=== PATIENT | female | born 1980 | race Caucasian/White ===

== ENCOUNTER 2017-02-27 18:58 | Observation (INO) | payer MEDICARE, MEDICAID ==
[~2017-02-27 18:58] MED LIST: ACETAMINOP650 MG/SUP RC; ACIDOPHILUS LA1 EAC1 PO; ACIDOPHILUS1 CAP; ACIDOPHILUS1 CAP PO; ACIDOPHILUS1 EACH PO; ACTOS15 MG PO; ACTOS30 MG; ADVAIR 1001 DISK W/D IH; ADVAIR 5001 DISK W/D; ADVAIR 5001 DISK W/D IH; ADVAIR 50028 BLISTE1 PO; ALBUTEROL17 GM INH; AMOXICILLIN500 M PO; AMOXICILLIN500 MG; AMOXICILLIN875 MG; ATIVAN0.5 MG PO; AUGMENTIN 875-11 TAB PO; AUGMENTIN875 MG PO; AVELOX400 MG PO; BACTRIM; BACTRIM DS TAB1 EAC2 PO; BIRTH CONTROL PILL; CALCIUM + D3 E1 EAC2 PO; CALCIUM PO; CALCIUM WITH VI1 TAB PO; CALCIUM500 M4 PO; CALCIUM600 MG PO; CEFDINIR300 MG PO; CEFTIN500 MG PO; CELEXA20 MG PO; CIPRO; COLACE100 MG PO; CULTURELLE1 CA1 NG; DELTASONE10 MG; DELTASONE10 MG PO; DIABETA5 MG; DIFLUCAN; DIFLUCAN100 MG PO; DIFLUCAN150 MG PO; DIFLUCAN50 MG PO; DIOVAN80 M; DIOVAN80 M PO; DORYX100 MG PO; DOXYCYCLINE HY100 M2 PO; DUONEB 2.5-0.5 M3 ML; EPIPEN 2-P0.3 MG/0.3 IJ; EPIPEN0.3 MG/0.1 IM; ERYTHROMYCIN E400 MG PO; FLONASE ALLERG9.9 ML; FLONASE16 G1; FLONASE16 GM; FLONASE16 GM NS; FLOVENT DISKU250 MC1 IH; FLOVENT DISKU250 MCG IH; FLOVENT HFA12 G; FLOVENT HFA12 G IH; FLOVENT13; FOLIC ACID0.4 M1 PO; FOLIC ACID0.4 MG PO; GLIMEPIRIDE4 MG; GLUCAGEN1 MG/1 ML IM; GLUCAGEN1 MG/KIT IJ; GLUCAGON IN1 MG/1 ML IM; GLUCAGON1 MG/KIT IM; GLUCOPHAGE1000 MG; GLUCOPHAGE1000 MG PO; GLUCOPHAGE500 MG; GLUCOPHAGE500 MG PO; HUMALOG100 U/ML; HUMALOG100 U/ML SQ; HUMULIN; HUMULIN N100 U/ML; HUMULIN R100 U/ML SQ; IBUPROFEN600 MG PO; IBUPROFEN800 MG PO; INSULIN PUMP; INSULIN PUMP1 EACH MC; INSULIN SC; K-DUR20 ME1 PO; K-DUR20 MEQ PO; KEFLEX500 M4 PO; KEFLEX500 MG PO; LACTINEX PACKET1 PKT PO; LANTUS100 U/ML; LANTUS100 U/ML SC; LASIX20 MG PO; LASIX40 MG PO; LEVAQUIN500 MG; LEVEMIR100 U/M SC; LEVOTHROID125 MCG PO; LEVOTHROID150 MC1 PO; LEVOTHROID150 MCG PO; LEVOXYL150 MC1 PO; LEVOXYL150 MCG PO; LEVOXYL200 MCG PO; LIPITOR10 M1 PO; LIPITOR10 MG; LIPITOR10 MG PO; LISINOPRIL10 M1 PO; LISINOPRIL2.5 MG PO; LOPERAMIDE2 M2 PO; LORAZEPAM0.5 MG PO; MACROBID 100 M100 MG PO; MAG-AL PLUS SUS30 ML PO; MAGIC MOUTH WASH PO; METROGEL-VAGINA70 GM VG; METRONIDAZOLE500 MG PO; MILK OF MA400 MG/5 M PO; MIRALAX12 EA PO; MIRALAX17 G1 PO; MONISTAT 7100 MG/SUP; MONTELUKAST SOD10 M1 PO; MONTELUKAST SOD10 M2 PO; MUCINEX DM1 TAB.SR .; MUCINEX600 MG PO; MULTIVITAMIN1 TAB PO; MULTIVITAMINS1 EAC7 PO; NEURONTIN300 M1 PO; NOVOLOG100 U/M; NOVOLOG100 U/M SQ; OMEPRAZOLE20 M2 PO; OMEPRAZOLE20 M3 PO; ORAL BIRTH CONTROL PO; OXYCODONE/APAP PO; PEN-VEE K500 MG PO; PERCOCET 5/3251 TAB PO; PHENERGAN12.5 MG PO; PHENERGAN25 M3 RC; PREDNISONE; PREDNISONE1 MG PO; PREDNISONE10 MG; PREDNISONE10 MG PO; PREDNISONE20 MG; PREDNISONE20 MG PO; PRILOSEC OTC20 M1 PO; PRILOSEC OTC20 MG PO; PRILOSEC20 MG PO; PRINIVIL2.5 MG; PROVENTIL17 GM IH; REGLAN5 MG PO; ROBITUSSIN; ROBITUSSIN COU; ROBITUSSIN DM T10 ML PO; SEASONIQUE1 BLIST PA; SEASONIQUE1 BLIST PA PO; SINGULAIR10 MG; SINGULAIR10 MG PO; SPIRIVA18 MC1 IH; SPIRIVA18 MCG; SPIRIVA18 MCG IH; SYNTHROID100 MCG; SYNTHROID125 MCG PO; SYNTHROID150 MCG PO; SYNTHROID88 MCG; TRAZODONE HCL50 M1 PO; TYLENOL325 M1 PO; TYLENOL325 MG PO; ULTRAM50 M1 PO; VENTOLIN HFA18 G2 INH; VENTOLIN HFA18 GM IH; VENTOLIN17 GM; VITAMIN B-121000 MC1 PO; VITAMIN B121000 MCG PO; VITAMIN C PO; VITAMIN C500 M3 PO; VITAMIN D350000 UNI1 PO; XOLAIR; XOLAIR150 MG/1.2 SC; XOLAIR150 MG/VIA SQ; XOPENEX0.63 MG/1 IH; XOPENEX0.63 MG/3; XOPENEX0.63 MG/3 IH; XOPENEX1.25 MG/1 IH; ZESTRIL2.5 M1 PO; ZESTRIL2.5 MG PO; ZITHROMAX250MG Z-PAK; ZITHROMAX250MG Z-PAK PO; ZOFRAN ODT4 MG PO; ZOFRAN4 M1 PO; ZOFRAN4 M2 PO; ZOFRAN4 MG PO; ZOLOFT50 M1 PO; ZYRTEC-D T1 TAB.SR .; ZYRTEC-D T1 TAB.SR . PO; ZYRTEC1 MG/1 ML PO; ZYRTEC10 M3 PO; ZYRTEC10 M7 PO; ZYRTEC10 MG PO; [UNRECOGNIZED DRUG - OTHER]; [UNRECOGNIZED DRUG - OTHER]; [UNRECOGNIZED DRUG - OTHER]; [UNRECOGNIZED DRUG - OTHER]; [UNRECOGNIZED DRUG - OTHER] BOTH EARS; [UNRECOGNIZED DRUG - OTHER] PO; [UNRECOGNIZED DRUG - OTHER] PO; [UNRECOGNIZED DRUG - OTHER] PO; [UNRECOGNIZED DRUG - OTHER] PO; [UNRECOGNIZED DRUG - REMARK]; [UNRECOGNIZED DRUG - REMARK]; [UNRECOGNIZED DRUG - SUPPLY]
[2017-02-27 21:29] LABS: CREATININE 0.61 mg/dl (0.67-1.17); eGFR VALUE FOR BLACK >90 mL/Min
[2017-02-27] MEDS ORDERED: XOPENEX1.25 MG/2 INH (22:37)
[2017-02-27] MEDS ORDERED: POTASSIUM CHLO20 ME3 PO (22:38)
[2017-02-27] MEDS ORDERED: PRENA1 CHEW TA1.4 M1 PO (22:39)
[2017-02-27] MEDS ORDERED: GINGER ROOT PO (22:40)
[2017-02-27] MEDS ORDERED: VICKS VAPORUB O50 G1 TP (22:41)
[2017-02-27] MEDS ORDERED: TUMS200 MG PO (22:43)
[2017-02-28 15:34] LABS: BASO % 0.2 % (0-2); EOS % 2.7 % (0-7); EOSINOPHIL ABSOLUTE COUNT 0.4 tho/cmm (0.0-0.7); HCT-HEMATOCRIT 29.1 % (34.0-49.0); HGB-HEMOGLOBIN 9.1 gm/dl (12.0-15.5); IMMATURE GRANULOCYTES ABSOLUTE 0.05 tho/cmm (0-0.03); IMMATURE GRANULOCYTES PERCENT 0.4 % (0-0.3); LYMPH % 11.4 % (20-45); LYMPH ABSOLUTE COUNT 1.5 tho/cmm (0.8-4.5); MCH (MEAN CORPUSCULAR HGB) 23.1 pg (28.0-32.0); MCHC MEAN CORPUSCULAR HGB CONC 31.3 % (32.0-36.0); MCV (MEAN CELL VOLUME) 73.9 fl (82.0-96.0); MEAN PLATELET VOLUME 9.4 cmc (9.4-12.4); MONO % 5.4 % (0-12); MONOCYTE ABSOLUTE COUNT 0.7 tho/cmm (0.0-1.2); NEUTROPHIL ABSOLUTE COUNT 10.4 tho/cmm (1.6-8.0); NEUTROPHIL-AUTOMATED 10.4 tho/cmm (1.6-8.0); NEUTROPHILS % 79.9 % (40-80); PLATELET COUNT 357 tho/cmm (150-450); RED BLOOD COUNT 3.94 mil/cmm (4.00-5.20); RED CELL DISTRIBUTION WIDTH 16.6 % (12.4-16.4)
[2017-02-28 15:48] LABS: ANION GAP 13 mmol/L (0-20); BLOOD UREA NITROGEN 10 mg/dl (6-24); CALCIUM 8.1 mg/dl (8.5-10.5); CARBON DIOXIDE-VENOUS 25 mmol/L (22-32); CHLORIDE 104 mmol/l (96-110); CREATININE 0.64 mg/dl (0.50-1.10); GLUCOSE 120 mg/dL (70-110); POTASSIUM 3.9 mmol/L (3.7-5.1); SODIUM 138 mmol/L (135-145); eGFR VALUE FOR BLACK >90 mL/Min
--- NOTE | 2017-02-28 15:59 | NUR ---
DR. 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 DR. PRAJAPATI THEN VISITED WITH DR. CASE PER TELEPHONE. ORDERS RECEIVED FOR PATIENT TO STAY OVERNIGHT.
[2017-02-28 16:28] LABS: PROCALCITONIN <0.05 ng/ml (0.05-0.09)
[2017-03-01] MEDS ORDERED: DELTASONE20 MG PO (07:37)
== END 2017-03-01 10:25 ==
LOC: LDR 18:58
PROVIDERS: Internal Medicine; ADMIT Obstetrics & Gynecology Maternal & Fetal Medicine
DX: O99.513 Diseases of the respiratory system complicating pregnancy, third trimester (principal); J45.901 Unspecified asthma with (acute) exacerbation; G47.33 Obstructive sleep apnea (adult) (pediatric); Z3A.34 34 weeks gestation of pregnancy; E10.8 Type 1 diabetes mellitus with unspecified complications; E03.9 Hypothyroidism, unspecified; F41.9 Anxiety disorder, unspecified; E66.01 Morbid (severe) obesity due to excess calories; Z79.899 Other long term (current) drug therapy
CPT/HCPCS: G0378; J7512; Q9967

== ENCOUNTER 2017-03-20 06:37 | Inpatient (IN) | payer MEDICARE, MEDICAID ==
[~2017-03-20 06:37] MED LIST changes: +DELTASONE20 MG PO; +GINGER ROOT PO; +POTASSIUM CHLO20 ME3 PO; +PRENA1 CHEW TA1.4 M1 PO; +TUMS200 MG PO; +VICKS VAPORUB O50 G1 TP; +XOPENEX1.25 MG/2 INH
[2017-03-20 12:10] LABS: BASO % 0.1 % (0-2); EOS % 2.1 % (0-7); EOSINOPHIL ABSOLUTE COUNT 0.3 tho/cmm (0.0-0.7); HCT-HEMATOCRIT 27.8 % (34.0-49.0); HGB-HEMOGLOBIN 8.7 gm/dl (12.0-15.5); IMMATURE GRANULOCYTES ABSOLUTE 0.06 tho/cmm (0-0.03); IMMATURE GRANULOCYTES PERCENT 0.4 % (0-0.3); LYMPH % 12.2 % (20-45); LYMPH ABSOLUTE COUNT 1.8 tho/cmm (0.8-4.5); MCHC MEAN CORPUSCULAR HGB CONC 31.3 % (32.0-36.0); MCV (MEAN CELL VOLUME) 73.4 fl (82.0-96.0); MEAN PLATELET VOLUME 9.7 cmc (9.4-12.4); MONO % 6.3 % (0-12); MONOCYTE ABSOLUTE COUNT 0.9 tho/cmm (0.0-1.2); NEUTROPHIL ABSOLUTE COUNT 11.3 tho/cmm (1.6-8.0); NEUTROPHIL-AUTOMATED 11.3 tho/cmm (1.6-8.0); NEUTROPHILS % 78.9 % (40-80); PLATELET COUNT 339 tho/cmm (150-450); RED BLOOD COUNT 3.79 mil/cmm (4.00-5.20); RED CELL DISTRIBUTION WIDTH 17.2 % (12.4-16.4); WHITE BLOOD COUNT 14.4 tho/cmm (4.0-10.0)
[2017-03-22 08:42] LABS: BASO % 0.2 % (0-2); EOS % 2.6 % (0-7); EOSINOPHIL ABSOLUTE COUNT 0.3 tho/cmm (0.0-0.7); HGB-HEMOGLOBIN 7.1 gm/dl (12.0-15.5); IMMATURE GRANULOCYTES ABSOLUTE 0.11 tho/cmm (0-0.03); IMMATURE GRANULOCYTES PERCENT 0.8 % (0-0.3); LYMPH % 14.4 % (20-45); LYMPH ABSOLUTE COUNT 1.9 tho/cmm (0.8-4.5); MCH (MEAN CORPUSCULAR HGB) 22.8 pg (28.0-32.0); MEAN PLATELET VOLUME 10.2 cmc (9.4-12.4); MONO % 6.5 % (0-12); MONOCYTE ABSOLUTE COUNT 0.9 tho/cmm (0.0-1.2); NEUTROPHILS % 75.5 % (40-80); RED BLOOD COUNT 3.12 mil/cmm (4.00-5.20); RED CELL DISTRIBUTION WIDTH 17.3 % (12.4-16.4); WHITE BLOOD COUNT 13.3 tho/cmm (4.0-10.0)
[2017-03-22 08:43] LABS: HCT-HEMATOCRIT 23.1 % (34.0-49.0); MCHC MEAN CORPUSCULAR HGB CONC 30.7 % (32.0-36.0)
[2017-03-22 09:01] LABS: ALKALINE PHOSPHATASE 91 U/L (33-138); ALT/SGPT 12 U/L (12-78); BILIRUBIN,TOTAL 0.3 mg/dl (0-1.5); BLOOD UREA NITROGEN 13 mg/dl (6-24); CALCIUM 7.9 mg/dl (8.5-10.5); CARBON DIOXIDE-VENOUS 22 mmol/L (22-32); CHLORIDE 108 mmol/l (96-110); CREATININE 0.73 mg/dl (0.50-1.10); GLUCOSE 180 mg/dL (70-110); SODIUM 138 mmol/L (135-145); eGFR VALUE FOR BLACK >90 mL/Min
[2017-03-22 09:20] LABS: ALB/GLOB RATIO 0.4 (0.8-2.0); ALBUMIN 1.6 g/dl (3.5-5.0); ANION GAP 12 mmol/L (0-20); AST/SGOT 26 U/L (10-40); POTASSIUM 4.4 mmol/L (3.7-5.1)
[2017-03-22 09:31] LABS: PLATELET COUNT 294 tho/cmm (150-450)
[2017-03-23] MEDS ORDERED: PERCOCET 5-3251 EACH PO (01:22)
[2017-03-24 06:42] LABS: PLATELET COUNT 334 tho/cmm (150-450)
[2017-03-25] MEDS ORDERED: LASIX20 M1 PO (15:48)
== END 2017-03-25 18:00 | DRG 765 ==
LOC: LDR 06:37 → OBGD 03-21 10:00
PROVIDERS: ADMIT Obstetrics & Gynecology Maternal & Fetal Medicine
PROC: 0U7C7ZZ Dilation of Cervix, Via Natural or Artificial Opening (ICD-10-PCS; 2017-03-20)
PROC: 3E0P7GC Introduction of Other Therapeutic Substance into Female Reproductive, Via Natural or Artificial Opening (ICD-10-PCS; 2017-03-20)
PROC: 10D00Z1 Extraction of Products of Conception, Low, Open Approach (ICD-10-PCS; principal; 2017-03-21)
DX: O24.02 Pre-existing type 1 diabetes mellitus, in childbirth (principal); O10.02 Pre-existing essential hypertension complicating childbirth; Z68.43 Body mass index [BMI] 50.0-59.9, adult; E10.9 Type 1 diabetes mellitus without complications; Z3A.37 37 weeks gestation of pregnancy; Z37.0 Single live birth; Z79.4 Long term (current) use of insulin; J45.909 Unspecified asthma, uncomplicated; O99.513 Diseases of the respiratory system complicating pregnancy, third trimester; O99.214 Obesity complicating childbirth; E66.01 Morbid (severe) obesity due to excess calories; O61.9 Failed induction of labor, unspecified
CPT/HCPCS: C1751; J0456; J0690; J1644; J2405; J2590; J7050; J7512